=== PATIENT | female | born 1990 | race Caucasian/White ===

== ENCOUNTER 2022-11-14 10:24 | Emergency (ER) | payer MEDICAID ==
[~2022-11-14] VITALS: Ht 180.3 cm; Wt 108.0 kg
[~2022-11-14 10:24] MED LIST: CEPH-568; PRENATALS
--- NOTE | 2022-11-14 10:26 | NUR ---
CALLED FOR TRIAGE AND PT TOLD ME TO WAIT, SHE WAS DOING SOMETHING
[2022-11-14 10:32] VITALS: BP_SYST 146
--- NOTE | 2022-11-14 10:32 | NUR ---
BROUGHT BACK TO BED #3 AND TRIAGE, REPORT GIVEN TO OSMAR
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
--- NOTE | 2022-11-14 10:48 | NUR ---
Dr Lira evaluating patient at bedside
[2022-11-14] MEDS ORDERED: CLIN-142 PO (10:53)
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
[2022-11-14] MEDS ORDERED: SOM350 PO (10:59)
[2022-11-14 11:06] VITALS: BP_SYST 146
--- NOTE | 2022-11-14 11:08 | NUR ---
Patient given written and verbal discharge instructions and verbalizes understanding. ER MD discussed with patient the results and treatment provided. Patient in stable condition. ID arm band removed. Rx of Clindamycin given. Patient educated on pain management and to follow up with PMD. Pain Scale 2/10. Opportunity for questions provided and answered. Medication side effect fact sheet provided.
== END 2022-11-14 11:08 | disposition home or self-care (01) ==
LOC: SED 10:24
DX: L73.9 Follicular disorder, unspecified (principal); R21 Rash and other nonspecific skin eruption; Z88.0 Allergy status to penicillin; Z79.899 Other long term (current) drug therapy
CPT/HCPCS: 99283